=== PATIENT | female | born 1945 | race Caucasian/White ===

== ENCOUNTER 2023-06-04 09:34 | Outpatient (CLI) | payer MEDICARE | END 2023-06-04 09:35 | disposition home or self-care (01) | LOC: SCSMRI 09:34 | PROVIDERS: ATTEND Family Medicine | DX: M25.461 Effusion, right knee (principal); M25.361 Other instability, right knee; Z91.81 History of falling; S80.01XA Contusion of right knee, initial encounter; M22.8X1 Other disorders of patella, right knee ==

== ENCOUNTER 2024-06-07 14:40 | Outpatient (CLI) | payer MEDICARE | END 2024-06-07 14:41 | disposition home or self-care (01) | LOC: SCSRAD 14:40 | PROVIDERS: ATTEND Family Medicine | DX: R05.8 Other specified cough (principal); I70.0 Atherosclerosis of aorta | CPT/HCPCS: 71046 ==